=== PATIENT | male | born 2000 | race Caucasian/White ===

== ENCOUNTER 2023-02-15 09:09 | Emergency (ER) | payer MEDICAID ==
[~2023-02-15] VITALS: Ht 170.2 cm; Wt 65.8 kg
[2023-02-15 09:16] VITALS: BP 129/90; PULSE 80; RESP 17; TEMP 97.8; O2SAT 100
[2023-02-15] MEDS ORDERED: KETOROLAC 30 MG/ML VIAL IM ONE (10:05)
[2023-02-15 10:41] LABS: APPEARANCE,URINE CLEAR (CLEAR); BILIRUBIN,URINE NEGATIVE (NEGATIVE); BLOOD, URINE NEGATIVE (NEGATIVE); COLOR,URINE YELLOW (YELLOW); LEUKOCYTE ESTERASE ,URINE NEGATIVE (NEGATIVE); NITRITE, URINE NEGATIVE (NEGATIVE); PH,URINE 6.5 (5.0-9.0); PROTEIN,URINE NEGATIVE (NEGATIVE); UGLUCOSE NEGATIVE (NEGATIVE); UROBILINOGEN,URINE 0.2 EU/dL (0.2 - 1)
[2023-02-15] MEDS ORDERED: IBUP-2213 PO (11:17)
[2023-02-15] MEDS ORDERED: LID5T TP (11:17)
[2023-02-15 11:32] VITALS: BP 129/90; PULSE 89; RESP 17; TEMP 97.8
[2023-02-15 11:39] VITALS: O2SAT 99
== END 2023-02-15 11:45 | disposition home or self-care (01) ==
LOC: MED 09:09
DX: S39.011A Strain of muscle, fascia and tendon of abdomen, initial encounter (principal); R39.11 Hesitancy of micturition; Z79.899 Other long term (current) drug therapy; X50.0XXA Overexertion from strenuous movement or load, initial encounter; Y93.89 Activity, other specified; Y92.89 Other specified places as the place of occurrence of the external cause; Y99.0 Civilian activity done for income or pay
CPT/HCPCS: 81003; 87491; 96372; 99283; J1885